=== PATIENT | male | born 1975 ===

== ENCOUNTER 2018-06-22 10:38 | Emergency (ER) | payer OTHER ==
[2018-06-22 10:38] VITALS: BMI 29.0
[2018-06-22 11:50] LABS: BASO # 0.1 K/uL (0.0-0.2); BASO % 0.7 % (0.0-2.0); EOS # 0.3 K/uL (0.0-0.7); EOS % 4.5 % (0.0-4.0); HEMOGLOBIN 15.5 g/dL (12.0-18.0); LYMPH # 1.4 K/uL (1.0-4.3); LYMPH % 19.3 % (20.0-40.0); MEAN CELL VOLUME 83.3 fl (80.0-94.0); MEAN CORPUSCULAR HEMOGLOBIN 28.2 pg (27.0-31.0); MEAN CORPUSCULAR HGB CONC 33.8 g/dL (33.0-37.0); MEAN PLATELET VOLUME 7.7 fl (7.2-11.7); MONO # 0.6 K/uL (0.0-0.8); MONO % 8.2 % (0.0-10.0); NEUT % 67.3 % (50.0-75.0); RBC 5.48 Mil/uL (4.40-5.90); RED CELL DISTRIBUTION WIDTH 13.1 % (11.5-14.5); WHITE BLOOD COUNT 7.4 K/uL (4.8-10.8)
[2018-06-22 12:03] LABS: ALB/GLOB RATIO 1.6 (1.0-2.1); ALBUMIN 4.7 g/dL (3.5-5.0); ALT/SGPT 40 U/L (21-72); AST/SGOT 25 U/L (17-59); BLOOD UREA NITROGEN 19 mg/dl (9-20); CALCIUM 9.4 mg/dL (8.4-10.2); GFR NON-AFRICAN AMERICAN > 60
[2018-06-22 12:30] VITALS: RESP 16; O2SAT 99
--- NOTE | 2018-06-22 13:51 | CT ---
Date of service: 06/22/2018 PROCEDURE: CT HEAD WITHOUT CONTRAST. HISTORY: AMS COMPARISON: Unenhanced head CT 02/13/2011. TECHNIQUE: Axial computed tomography images were obtained through the head/brain without intravenous contrast. Radiation dose: Total exam DLP = 851.53 mGy-cm. This CT exam was performed using one or more of the following dose reduction techniques: Automated exposure control, adjustment of the mA and/or kV according to patient size, and/or use of iterative reconstruction technique. FINDINGS: HEMORRHAGE: No intracranial hemorrhage. BRAIN: Normal maciel-white matter differentiation and density are appreciated throughout the cerebrum and cerebellum with the brainstem appearing unremarkable as well. There is no mass effect. There is no suspicious extra-axial fluid collection and the midline brain anatomy appears diffusely unremarkable. VENTRICLES: Unremarkable. No hydrocephalus. CALVARIUM: Unremarkable. PARANASAL SINUSES: Unremarkable as visualized. No significant inflammatory changes. MASTOID AIR CELLS: Unremarkable as visualized. No inflammatory changes. OTHER FINDINGS: None. IMPRESSION: Stable unremarkable unenhanced head CT.
--- NOTE | 2018-06-22 13:59 | RAD ---
Date of service: 06/22/2018 PROCEDURE: Radiographs of the right elbow. HISTORY: right elbow pain/ no fall COMPARISON: No prior. TECHNIQUE: 3 views obtained. FINDINGS: BONES: Normal. No fracture. JOINTS: Normal. No osteoarthritis. SOFT TISSUES: Normal. JOINT EFFUSION: None. OTHER FINDINGS: None. IMPRESSION: Unremarkable radiographs of the right elbow.
--- NOTE | 2018-06-22 14:41 | ED PDOC ---
HPI: General Adult Time Seen by Provider: 06/22/18 11:54 Chief Complaint (Nursing): Headache Chief Complaint (Provider): HEADACHE ONGOING History Per: Patient (42 Y/O MALE HERE WITH HEADACHE X 4 DAYS IMPROVING TODAY. DENIES ANY FEVERS/CHILLS. NOTES DIZZINESS ASSOCIATED WITH HEADACHE. PATIENT NOTES INTERMITTENT RIGHT LATERAL ELBOW TENDERNESS X 2 YEARS. NO FALLS/NO INJ URY. PATIENT HAS NOT SEEN ANYONE FOR EVALUATION OF ELBOW PAIN.) Past Medical History Reviewed: Historical Data, Nursing Documentation, Vital Signs Vital Signs: Last Vital Signs Temp 97.1 F L 06/22/18 11:00 Pulse 76 06/22/18 11:00 Resp 16 06/22/18 11:00 BP 122/74 06/22/18 11:00 Pulse Ox 99 06/22/18 11:00 Primary Care Provider: FAMILY PROVIDER,NO - Medical History PMH: Anxiety, Depression Denies: Chronic Kidney Disease - Family History Family History: States: Unknown Family Hx - Immunization History Hx Tetanus Toxoid Vaccination: No Hx Influenza Vaccination: No Hx Pneumococcal Vaccination: No - Home Medications Home Medications: Ambulatory Orders Medication Instructions Recorded Dicyclomine [Bentyl] 10 mg PO TID PRN #10 cap 03/23/17 Ibuprofen [Motrin Tab] 600 mg PO Q6 PRN #15 tab 03/23/17 Naproxen 375 mg PO Q8 PRN #21 tablet 06/22/18 - Allergies Allergies/Adverse Reactions: Allergies Allergy/AdvReac Type Severity Reaction Status Date / Time No Known Allergies Allergy Verified 03/23/17 02:23 Review of Systems ROS Statement: Except As Marked, All Systems Reviewed And Found Negative Neurological: Positive for: Headache Physical Exam - Reviewed Nursing Documentation Reviewed: Yes Vital Signs Reviewed: Yes - Physical Exam Appears: Positive for: Well, Non-toxic, No Acute Distress Head Exam: Positive for: ATRAUMATIC, NORMAL INSPECTION, NORMOCEPHALIC Skin: Positive for: Normal Color, Warm, DRY Eye Exam: Positive for: EOMI, Normal appearance, PERRL ENT: Positive for: Normal ENT Inspection Neck: Positive for: Normal, Painless ROM Cardiovascular/Chest: Positive for: Regular Rate, Rhythm Respiratory: Positive for: CNT, Normal Breath Sounds Gastrointestinal/Abdominal: Positive for: Normal Exam, Soft Back: Positive for: Normal Inspection Extremity: Positive for: Normal ROM Neurological/Psych: Positive for: Awake, Alert, Normal Tone - Laboratory Results Result Diagrams: 06/22/18 11:45 06/22/18 11:45 Lab Results: Total Bilirubin 0.7 mg/dl (0.2-1.3) 06/22/18 11:45 AST 25 U/L (17-59) 06/22/18 11:45 ALT 40 U/L (21-72) 06/22/18 11:45 Alkaline Phosphatase 64 U/L (38-126) 06/22/18 11:45 Total Protein 7.7 G/DL (6.3-8.2) 06/22/18 11:45 Albumin 4.7 g/dL (3.5-5.0) 06/22/18 11:45 Globulin 3.0 gm/dL (2.2-3.9) 06/22/18 11:45 Albumin/Globulin Ratio 1.6 (1.0-2.1) 06/22/18 11:45 - ECG O2 Sat by Pulse Oximetry: 99 - Progress ED Course And Treament: HEAD CT: NAD ELBOW RIGHT : NO INJURY Disposition - Clinical Impression Clinical Impression: Headache, Lateral epicondylitis of elbow - Patient ED Disposition Is Patient to be Admitted: No - Disposition Referrals: [facility] [Outside] Disposition: Routine/Home Disposition Time: 14:43 Condition: FAIR Prescriptions: Naproxen 375 mg PO Q8 PRN #21 tablet PRN Reason: Pain, Moderate (4-7) Instructions: Lateral Epicondylitis, Tension Headache (DC) Forms: [facility] ED School/Work Excuse Print Language: TRINIDADIAN
[2018-06-22 15:51] VITALS: BP 118/70; PULSE 72; TEMP 97
== END 2018-06-22 15:15 | disposition home or self-care (01) ==
LOC: H.ER 10:38
DX: R51 Headache (principal); M77.11 Lateral epicondylitis, right elbow; Z86.59 Personal history of other mental and behavioral disorders